=== PATIENT | female | born 1935 | race Hispanic/Latino ===

== ENCOUNTER 2017-09-05 17:37 | Inpatient (IN) | payer MEDICARE ==
[2017-09-05 20:33] VITALS: BMI 24.5
--- NOTE | 2017-09-05 22:00 | CP.PCM.HP ---
History of Present Illness - History of Present Illness History of Present Illness: Chief Complaint: infected wound right hip: The Patient was seen and examined in the Rehab unit HPI: The hx was obtained from the family and the medical records. The patient was sent from the [facility] for Physical therapy and continued treatment. She is an 81 years old female with hx of dementia, HTN, Osteoarthritis Right hip Open Reduction Internal Fixation done on 07/10/17. She was re admitted on 07/29/17 for wound infection at the right surgical wound. PICC line placed and started on Vancomycin to which she later developed a skin rash. She was again sent from [facility] ([facility] to the ED on 09/07/17 because of Mental frarusto the ED because she Wound culture grew MRSA and E Coli, Vancomycin was discontinued and patient started on Cubicin on 09/02/17 to complete 16 days. PMH: Dementia; HTN; osteoarthritis; HLD; Anxiety, PSH: Right hip ORIF 07/10/2017 SH: No illegal drug use; No alcohol; No smoking; Lives in Assisted lining FH: No Known Family Hs Allergies: Vancomycin; Cefepime Medication: Reviewed pmd Present on Admission - Present on Admission Any Indicators Present on Admission: No History of DVT/PE: No History of Uncontrolled Diabetes: No Urinary Catheter: No Decubitus Ulcer Present: No Review of Systems - Review of Systems Systems not reviewed;Unavailable: Dementia Review of Systems: Review of systems is limited because the patient has dementia. Past Patient History - Past Medical History & Family History Past Medical History?: Yes - Past Social History Smoking Status: Never Smoked Chewing Tobacco Use: No Cigar Use: No Alcohol: None Drugs: Denies - CARDIAC Hx Hypercholesterolemia: Yes Hx Hypertension: Yes - PULMONARY Hx Respiratory Disorders: No - NEUROLOGICAL Hx Dementia: Yes - HEENT Hx HEENT Problems: No - RENAL Hx Chronic Kidney Disease: No - ENDOCRINE/METABOLIC Hx Endocrine Disorders: No - HEMATOLOGICAL/ONCOLOGICAL Hx Blood Disorders: No - INTEGUMENTARY Hx Dermatological Problems: No - MUSCULOSKELETAL/RHEUMATOLOGICAL Hx Musculoskeletal Disorders: Yes Hx Osteoarthritis: Yes - GASTROINTESTINAL Hx Gastrointestinal Disorders: No - GENITOURINARY/GYNECOLOGICAL Hx Genitourinary Disorders: No - PSYCHIATRIC Hx Psychophysiologic Disorder: No - SURGICAL HISTORY Hx Surgeries: Yes Hx Orthopedic Surgery: Yes (Right hip ORIF) - ANESTHESIA Hx Anesthesia: Yes Hx Anesthesia Reactions: No Meds Allergies/Adverse Reactions: Allergies Allergy/AdvReac Type Severity Reaction Status Date / Time vancomycin Allergy Severe RASH Verified 09/05/17 20:32 cefepime Allergy RASH Verified 09/06/17 01:00 Sulfa (Sulfonamide Allergy RASH Verified 09/06/17 01:00 Antibiotics) Physical Exam - Constitutional Appears: No Acute Distress - Head Exam Head Exam: ATRAUMATIC, NORMAL INSPECTION, NORMOCEPHALIC - Eye Exam Eye Exam: EOMI, Normal appearance Pupil Exam: NORMAL ACCOMODATION, PERRL - ENT Exam ENT Exam: Mucous Membranes Moist, Normal Exam, Normal External Ear Exam - Neck Exam Neck exam: Positive for: Full Rom, Normal Inspection. Negative for: Lymphadenopathy, Tenderness - Respiratory Exam Respiratory Exam: Clear to Auscultation Bilateral. absent: Rales, Rhonchi, Wheezes - Cardiovascular Exam Cardiovascular Exam: REGULAR RHYTHM, RRR, +S1, +S2 - GI/Abdominal Exam GI & Abdominal Exam: Normal Bowel Sounds, Soft. absent: Mass, Organomegaly, Tenderness - Rectal Exam Rectal Exam: Deferred - Extremities Exam Extremities exam: Negative for: pedal edema Additional comments: Right hip lateral aspect with healed surgical wound . No sign of Inflammation - Back Exam Back exam: NORMAL INSPECTION. absent: CVA tenderness (L), CVA tenderness (R) - Neurological Exam Neurological exam: CN II-XII Intact, Oriented x3, Reflexes Normal Additional comments: Confused - Psychiatric Exam Psychiatric exam: Normal Affect, Normal Mood - Skin Skin Exam: Dry, Intact, Normal Color, Warm Assessment & Plan - Assessment and Plan (Free Text) Assessment: #. MRSA infected wound Right Hip #. HTN #. Dementia #. Anxiety #. Deconditioning Plan: 81 years old female with hx of dementia, HTN, Osteoarthritis Right hip Open Reduction Internal Fixation done on 07/10/17. She was re admitted on 07/29/17 for wound infection at the right surgical wound. PICC line placed and started on Vancomycin to which she later developed a skin rash. She was again sent from [facility] ([facility] to the ED on 09/07/17 because of Mental Status Change. Her Wound culture grew MRSA and E Coli, Vancomycin was discontinued and patient started on Cubicin on 09/02/17 to complete 16 days. #. MRSA infected wound Right Hip - Consult ID Dr Gray - Continue Cubacin to 09/18/17 or as per ID - Continue Levofloxacin #. HTN - Valsartan - Follow blood pressures #. Dementia - Psychiologist on board #. Anxiety - Consult Dr Arevalo Psychologist - Lexapr #. Deconditioning - Consult Dr Coyle Physiatry - PT/OT #. Code Status: Full - Date & Time Date: 09/05/17 Time: 22:00
[2017-09-05] MEDS ORDERED: CODEINE SULFATE PO PRN (22:04)
[2017-09-05] MEDS ORDERED: Patient's Own Med (Methylprednisolone [Medrol Dose Pack (21 Tabs)] 4 MG) PO SCH ×2 (22:15→23:30)
[2017-09-05] MEDS ORDERED: Patient's Own Med (Methylprednisolone [Medrol Dose Pack (21 Tabs)] 4 MG) PO ONE (23:30)
[2017-09-06 06:43] LABS: BASO % 0.3 % (0.0-2.0); EOS # 0.1 K/uL (0.0-0.7); EOS % 1.7 % (0.0-4.0); HEMOGLOBIN 12.4 g/dL (12.0-16.0); LYMPH # 1.5 K/uL (1.0-4.3); LYMPH % 17.8 % (20.0-40.0); MEAN CELL VOLUME 88.7 fl (81.0-99.0); MEAN CORPUSCULAR HEMOGLOBIN 29.5 pg (27.0-31.0); MEAN CORPUSCULAR HGB CONC 33.2 g/dL (33.0-37.0); MEAN PLATELET VOLUME 8.5 fl (7.2-11.7); MONO # 0.6 K/uL (0.0-0.8); MONO % 7.5 % (0.0-10.0); NEUT % 72.7 % (50.0-75.0); NRBC % 0.1 % (0.0-0.0); RBC 4.22 Mil/uL (3.80-5.20); RED CELL DISTRIBUTION WIDTH 15.4 % (11.5-14.5); WHITE BLOOD COUNT 8.3 K/uL (4.8-10.8)
[2017-09-06 06:48] LABS: INR 1.1 (0.9-1.2); PARTIAL THROMBOPLASTIN TIME 26.1 Seconds (25.6-37.1); PROTHROMBIN TIME 12.4 Seconds (9.8-13.1)
[2017-09-06 06:53] LABS: ALB/GLOB RATIO 1.1 (1.0-2.1); ALBUMIN 2.9 g/dL (3.5-5.0); ALT/SGPT 40 U/L (9-52); AST/SGOT 19 U/L (14-36); BLOOD UREA NITROGEN 24 mg/dl (7-17); CALCIUM 8.4 mg/dL (8.4-10.2)
[2017-09-06] MEDS: Patient's Own Med (Methylprednisolone [Medrol Dose Pack (21 Tabs)] 4 MG) PO SCH ×3 (06:57→22:19)
[2017-09-06 07:07] LABS: GFR AFRICAN-AMERICAN > 60; GFR NON-AFRICAN AMERICAN > 60
[2017-09-06] MEDS ORDERED: HEPARIN SODIUM IV SCH (09:00)
[2017-09-06] MEDS ORDERED: Patient's Own Med (Ferrous Sulfate [Feosol] 324 MG) PO SCH (09:00)
[2017-09-06] MEDS ORDERED: Patient's Own Med (Multivitamins [Hexavitamin] 1 TAB) PO SCH (09:00)
[2017-09-06] MEDS: Enoxaparin 40 mg Syringe SC SCH (09:15)
[2017-09-06] MEDS: Multivitamin With Minerals Tab PO SCH (09:25)
[2017-09-06] MEDS: levoFLOXacin 500 MG TAB PO SCH (09:25)
[2017-09-06] MEDS: Lactobacillus Acidophilus 500 MU Cap PO SCH ×2 (09:29→22:16)
--- NOTE | 2017-09-06 13:17 | PSY.TMCNF ---
Nursing - Vital Signs Vital Signs (Last 8 hours): Vital Signs 09/06/17 09/06/17 08:45 09:00 Temperature 97.6 F 97.6 F Pulse Rate 78 78 Respiratory 18 18 Rate Blood Pressure 120/80 120/80 O2 Sat by Pulse 96 Oximetry Pain: 0 - Medications/Other Issues Comment: Refuses to take some medications despite encouragement and explanation. 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 I/L healed. - Consults Comment: Dr. Gray, Dr. Coyle - Toileting Toileting: Dependent - Bladder Management Bladder Pattern: Normal Voiding Method: Diaper Bladder Management: Dependent Frequency of Accidents: >5 - Bowel Management Bowel Pattern: Incontinent Bowel Management: Dependent Frequency of Accidents: >5 - Transfers Transfers: Minimal Assistance - ADL's ADL's: Moderate Assistance - Pain Management Comments: On Tylenol , Codeine PRN - Patient/Family Teaching Comments: Safety Precautions - Goals/Time Frame Comments: FWB to RLE - Provider Provider: Pia GUTIÉRREZN RN CRRN Physical Therapy - Provider Therapist: Celsa License Number: [id number] Nutrition - Current Diet Current Diet/ Supplement/ Feedings: Regular thin liquids - Appetite Percent Meal Consumed: 50-74% - Comments Comments: Safety Precautions - Assessment/Goals/Time Frame Assessment/Goals/Time Frame: Refuses to take some medications despite encouragement and explanation. 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 I/L healed. - Provider Provider: Etta Ratliff RD Rehabilitation Plan - Treatment Plan Treatment Plan: Physical Therapy, Occupational Therapy, Dietary, Pain Management , Wound Care, Patient/Family Education - Discharge Plan Discharge to: Subacute ([facility] to LTC), [facility]
--- NOTE | 2017-09-06 13:19 | PCM.OPOC ---
Physiatry Overall Plan of Care - Overall Plan of Care Estimated Length of Stay in Weeks: 3 Rehab Impairment: Mobility, Gait, Cognition, Balance, Coordination Etiologic Diagnosis: Hip/Knee Surgery Rehab/Medical Prognosis: Guarded - Anticipated Interventions Physical Therapy:: Yes Occupational Therapy:: Yes Speech Therapy:: No Recreational Therapy:: Yes - Therapy Goals Bed Mobility: Contact Guard Ambulation: Contact Guard Functional Positional Changes:: Contact Guard - Discharge Plan Discharge Destination: Subacute
--- NOTE | 2017-09-06 14:08 | CP.PCM.CON ---
History of Present Illness - History of Present Illness History of Present Illness: Dr Coyle PMR consultation on Roxy Marrero, born 1935 who has been admitted to [facility] for acute inpatient rehabilitation. She had undergone an ORIF of the righ hip which developed an infection. She has been started on IV ABX and is here now for therapies to help increase functional independence. She has been at an assisted living facility. + Dementia Review of Systems - Review of Systems Systems not reviewed;Unavailable: Altered Mental Status Past Patient History - Past Medical History & Family History Past Medical History?: Yes - Past Social History Smoking Status: Never Smoked Chewing Tobacco Use: No Cigar Use: No Alcohol: None Drugs: Denies - CARDIAC Hx Hypercholesterolemia: Yes Hx Hypertension: Yes - PULMONARY Hx Respiratory Disorders: No - NEUROLOGICAL Hx Dementia: Yes - HEENT Hx HEENT Problems: No - RENAL Hx Chronic Kidney Disease: No - ENDOCRINE/METABOLIC Hx Endocrine Disorders: No - HEMATOLOGICAL/ONCOLOGICAL Hx Blood Disorders: No - INTEGUMENTARY Hx Dermatological Problems: No - MUSCULOSKELETAL/RHEUMATOLOGICAL Hx Musculoskeletal Disorders: Yes Hx Osteoarthritis: Yes - GASTROINTESTINAL Hx Gastrointestinal Disorders: No - GENITOURINARY/GYNECOLOGICAL Hx Genitourinary Disorders: No - PSYCHIATRIC Hx Psychophysiologic Disorder: No - SURGICAL HISTORY Hx Surgeries: Yes Hx Orthopedic Surgery: Yes (Right hip ORIF) - ANESTHESIA Hx Anesthesia: Yes Hx Anesthesia Reactions: No Meds Allergies/Adverse Reactions: Allergies Allergy/AdvReac Type Severity Reaction Status Date / Time vancomycin Allergy Severe RASH Verified 09/05/17 20:32 cefepime Allergy RASH Verified 09/06/17 01:00 Sulfa (Sulfonamide Allergy RASH Verified 09/06/17 01:00 Antibiotics) - Medications Medications: Current Medications Acetaminophen (Tylenol 325mg Tab) 325 mg PO Q6 PRN PRN Reason: Pain, moderate (4-7) Codeine Sulfate (Codeine) 30 mg PO Q6 PRN PRN Reason: Pain, severe (8-10) Daptomycin (Cubicin) 500 mg IV HS [facility] PRN Reason: Protocol Stop: 09/11/17 22:01 Docusate Sodium (Colace) 100 mg PO DAILY PRN PRN Reason: Constipation Enoxaparin Sodium (Lovenox) 40 mg SC DAILY [facility] PRN Reason: Protocol Escitalopram Oxalate (Lexapro) 20 mg PO DAILY [facility] Last Admin: 09/06/17 09:26 Dose: 20 mg Famotidine (Pepcid) 20 mg PO Q12 [facility] Last Admin: 09/06/17 09:26 Dose: 20 mg Ferrous Sulfate (Feosol) 325 mg PO BID [facility] Last Admin: 09/06/17 09:26 Dose: 325 mg Heparin Sodium (Porcine) (Heparin Lock Flush) 300 units IVF HS [facility] Home Med (Methylprednisolone [Medrol Dose Pack (21 Tabs)]) 4 mg PO TID@0730, 1300,2200 [facility] Stop: 09/06/17 23:00 Last Admin: 09/06/17 12:23 Dose: 4 mg Home Med (Methylprednisolone [Medrol Dose Pack (21 Tabs)]) 4 mg PO BID@0730, 2200 [facility] Stop: 09/07/17 23:00 Home Med (Methylprednisolone [Medrol Dose Pack (21 Tabs)]) 4 mg PO ACB ONE Stop: 09/08/17 07:31 Lactobacillus Acidophilus (Bacid Acidophilus) 1 cap PO Q12 [facility] Last Admin: 09/06/17 09:29 Dose: 1 cap Levofloxacin (Levaquin) 500 mg PO DAILY [facility] PRN Reason: Protocol Last Admin: 09/06/17 09:25 Dose: 500 mg Loratadine (Claritin) 10 mg PO DAILY [facility] Last Admin: 09/06/17 09:26 Dose: 10 mg Multivitamins/Minerals (Therapeutic-M Tab) 1 tab PO DAILY [facility] Last Admin: 09/06/17 09:25 Dose: 1 tab Nystatin (Nystop Topical Powder) 1 applic TOP Q12 [facility] Last Admin: 09/06/17 09:26 Dose: 1 applic Thiamine HCl (Vitamin B1 Tab) 100 mg PO DAILY [facility] Last Admin: 09/06/17 09:26 Dose: 100 mg Valsartan (Diovan) 160 mg PO Q12 [facility] Last Admin: 09/06/17 09:25 Dose: 160 mg Physical Exam - Constitutional Appears: Well, Non-toxic - Head Exam Head Exam: ATRAUMATIC, NORMAL INSPECTION, NORMOCEPHALIC - Eye Exam Eye Exam: EOMI - ENT Exam ENT Exam: Mucous Membranes Moist - Respiratory Exam Respiratory Exam: NORMAL BREATHING PATTERN - Cardiovascular Exam Cardiovascular Exam: REGULAR RHYTHM - GI/Abdominal Exam GI & Abdominal Exam: absent: Distended - Extremities Exam Extremities exam: Negative for: calf tenderness - Neurological Exam Neurological exam: Alert (but not aware of age or place) - Skin Skin Exam: Warm Results - Vital Signs Recent Vital Signs: Last Vital Signs Temp 97.6 F 09/06/17 09:00 Pulse 78 09/06/17 09:00 Resp 18 09/06/17 09:00 BP 120/80 09/06/17 09:00 Pulse Ox 96 09/06/17 08:45 - Labs Result Diagrams: 09/06/17 06:05 09/06/17 06:05 Labs: Laboratory Results - last 24 hr 09/06/17 09/06/17 09/06/17 06:05 06:05 06:05 WBC 8.3 RBC 4.22 Hgb 12.4 Hct 37.5 MCV 88.7 MCH 29.5 MCHC 33.2 RDW 15.4 H Plt Count 235 MPV 8.5 Neut % (Auto) 72.7 Lymph % (Auto) 17.8 L [place] % (Auto) 7.5 Eos % (Auto) 1.7 Baso % (Auto) 0.3 Neut # (Auto) 6.0 Lymph # (Auto) 1.5 [place] # (Auto) 0.6 Eos # (Auto) 0.1 Baso # (Auto) 0.0 PT 12.4 INR 1.1 APTT 26.1 Sodium 139 Potassium 3.6 Chloride 103 Carbon Dioxide 24 Anion Gap 16 BUN 24 H Creatinine 0.8 Est GFR ( Amer) > 60 Est GFR (Non-Af Amer) > 60 Random Glucose 104 Calcium 8.4 Total Bilirubin 0.5 AST 19 ALT 40 Alkaline Phosphatase 54 Total Protein 5.6 L Albumin 2.9 L Globulin 2.7 Albumin/Globulin Ratio 1.1 Assessment & Plan - Assessment and Plan (Free Text) Plan: PT/OT to continue to help increase functional independence Team conference for d/c planning Pain: controlled Vascular: no evidence of DVT GI: No evidence of constipation or diarrhea Patient is a fair acute rehabilitation candidate and will have focused pain management, PT, OT and recreational therapy to help facilitate a safe and appropriate d/c plan cognitive status is going to impede progress. Will need [facility] prior to d/c to LTC impairment code: 08.11
[2017-09-06] MEDS ORDERED: DAPTOmycin 500 MG in Sodium Chloride 0.9% 100 ML IV SCH (22:00)
[2017-09-06] MEDS ORDERED: DAPTOmycin 500 mg Inj (Cubicin) IV SCH (22:00)
[2017-09-07] MEDS: Patient's Own Med (Methylprednisolone [Medrol Dose Pack (21 Tabs)] 4 MG) PO SCH ×2 (07:59→22:41)
[2017-09-07] MEDS: Lactobacillus Acidophilus 500 MU Cap PO SCH ×2 (09:05→20:50)
[2017-09-07] MEDS: Multivitamin With Minerals Tab PO SCH (09:06)
[2017-09-07] MEDS: levoFLOXacin 500 MG TAB PO SCH (09:07)
[2017-09-07] MEDS: Enoxaparin 40 mg Syringe SC SCH (09:07)
--- NOTE | 2017-09-07 10:46 | CP.PCM.PN ---
Subjective - Date & Time of Evaluation Date of Evaluation: 09/07/17 Time of Evaluation: 10:20 - Subjective Subjective: I D NOTE WOULD CONTINUE IV DAPTOMYCIN WILL REVIEW PAPER CHART FULL COSULT TO FOLLOW Objective - Vital Signs/Intake and Output Vital Signs (last 24 hours): Temp Pulse Resp BP Pulse Ox 98.0 F 67 20 160/63 H 97 09/07/17 08:14 09/07/17 08:14 09/07/17 08:14 09/07/17 08:14 09/07/17 08:14 - Medications Medications: Current Medications Acetaminophen (Tylenol 325mg Tab) 325 mg PO Q6 PRN PRN Reason: Pain, moderate (4-7) Codeine Sulfate (Codeine) 30 mg PO Q6 PRN PRN Reason: Pain, severe (8-10) Docusate Sodium (Colace) 100 mg PO DAILY PRN PRN Reason: Constipation Enoxaparin Sodium (Lovenox) 40 mg SC DAILY [facility] PRN Reason: Protocol Last Admin: 09/07/17 09:07 Dose: 40 mg Escitalopram Oxalate (Lexapro) 20 mg PO DAILY [facility] Last Admin: 09/07/17 09:07 Dose: 20 mg Famotidine (Pepcid) 20 mg PO Q12 [facility] Last Admin: 09/07/17 09:07 Dose: 20 mg Ferrous Sulfate (Feosol) 325 mg PO BID [facility] Last Admin: 09/07/17 09:07 Dose: 325 mg Heparin Sodium (Porcine) (Heparin Lock Flush) 300 units IVF [facility] Last Admin: 09/06/17 22:17 Dose: 300 units Home Med (Methylprednisolone [Medrol Dose Pack (21 Tabs)]) 4 mg PO BID@0730, 2200 [facility] Stop: 09/07/17 23:00 Last Admin: 09/07/17 07:59 Dose: 4 mg Home Med (Methylprednisolone [Medrol Dose Pack (21 Tabs)]) 4 mg PO ACB ONE Stop: 09/08/17 07:31 Daptomycin 500 mg/ Sodium (Chloride) 100 mls @ 100 mls/hr IV HS [facility] Stop: 09/11/17 22:01 Last Admin: 09/06/17 22:38 Dose: 100 mls/hr Lactobacillus Acidophilus (Bacid Acidophilus) 1 cap PO Q12 [facility] Last Admin: 09/07/17 09:05 Dose: 1 cap Levofloxacin (Levaquin) 500 mg PO DAILY [facility] PRN Reason: Protocol Last Admin: 09/07/17 09:07 Dose: 500 mg Loratadine (Claritin) 10 mg PO DAILY [facility] Last Admin: 09/07/17 09:08 Dose: 10 mg Multivitamins/Minerals (Therapeutic-M Tab) 1 tab PO DAILY [facility] Last Admin: 09/07/17 09:06 Dose: 1 tab Nystatin (Nystop Topical Powder) 1 applic TOP Q12 [facility] Last Admin: 09/07/17 09:08 Dose: 1 applic Thiamine HCl (Vitamin B1 Tab) 100 mg PO DAILY [facility] Last Admin: 09/07/17 09:06 Dose: 100 mg Valsartan (Diovan) 160 mg PO Q12 [facility] Last Admin: 09/07/17 09:07 Dose: 160 mg - Labs Labs: 09/06/17 06:05 09/06/17 06:05 PT 12.4 Seconds (9.8-13.1) 09/06/17 06:05 INR 1.1 (0.9-1.2) 09/06/17 06:05 APTT 26.1 Seconds (25.6-37.1) 09/06/17 06:05
--- NOTE | 2017-09-07 14:19 | CP.PCM.PN ---
Subjective - Date & Time of Evaluation Date of Evaluation: 09/07/17 Time of Evaluation: 12:30 - Subjective Subjective: Patient seen and examined. Confused. No complaint. Objective - Vital Signs/Intake and Output Vital Signs (last 24 hours): Temp Pulse Resp BP Pulse Ox 98.0 F 88 20 160/63 H 99 09/07/17 08:14 09/07/17 08:58 09/07/17 08:14 09/07/17 08:14 09/07/17 08:58 - Medications Medications: Current Medications Acetaminophen (Tylenol 325mg Tab) 325 mg PO Q6 PRN PRN Reason: Pain, moderate (4-7) Codeine Sulfate (Codeine) 30 mg PO Q6 PRN PRN Reason: Pain, severe (8-10) Docusate Sodium (Colace) 100 mg PO DAILY PRN PRN Reason: Constipation Enoxaparin Sodium (Lovenox) 40 mg SC DAILY [facility] PRN Reason: Protocol Last Admin: 09/07/17 09:07 Dose: 40 mg Escitalopram Oxalate (Lexapro) 20 mg PO DAILY [facility] Last Admin: 09/07/17 09:07 Dose: 20 mg Famotidine (Pepcid) 20 mg PO Q12 [facility] Last Admin: 09/07/17 09:07 Dose: 20 mg Ferrous Sulfate (Feosol) 325 mg PO BID [facility] Last Admin: 09/07/17 09:07 Dose: 325 mg Heparin Sodium (Porcine) (Heparin Lock Flush) 300 units IVF [facility] Last Admin: 09/06/17 22:17 Dose: 300 units Home Med (Methylprednisolone [Medrol Dose Pack (21 Tabs)]) 4 mg PO BID@0730, 2200 [facility] Stop: 09/07/17 23:00 Last Admin: 09/07/17 07:59 Dose: 4 mg Home Med (Methylprednisolone [Medrol Dose Pack (21 Tabs)]) 4 mg PO ACB ONE Stop: 09/08/17 07:31 Daptomycin 500 mg/ Sodium (Chloride) 100 mls @ 100 mls/hr IV HS [facility] Stop: 09/11/17 22:01 Last Admin: 09/06/17 22:38 Dose: 100 mls/hr Lactobacillus Acidophilus (Bacid Acidophilus) 1 cap PO Q12 [facility] Last Admin: 09/07/17 09:05 Dose: 1 cap Levofloxacin (Levaquin) 500 mg PO DAILY [facility] PRN Reason: Protocol Last Admin: 09/07/17 09:07 Dose: 500 mg Loratadine (Claritin) 10 mg PO DAILY [facility] Last Admin: 09/07/17 09:08 Dose: 10 mg Multivitamins/Minerals (Therapeutic-M Tab) 1 tab PO DAILY [facility] Last Admin: 09/07/17 09:06 Dose: 1 tab Nystatin (Nystop Topical Powder) 1 applic TOP Q12 [facility] Last Admin: 09/07/17 09:08 Dose: 1 applic Thiamine HCl (Vitamin B1 Tab) 100 mg PO DAILY [facility] Last Admin: 09/07/17 09:06 Dose: 100 mg Valsartan (Diovan) 160 mg PO Q12 [facility] Last Admin: 09/07/17 09:07 Dose: 160 mg - Labs Labs: 09/06/17 06:05 09/06/17 06:05 PT 12.4 Seconds (9.8-13.1) 09/06/17 06:05 INR 1.1 (0.9-1.2) 09/06/17 06:05 APTT 26.1 Seconds (25.6-37.1) 09/06/17 06:05 - Constitutional Appears: No Acute Distress - Head Exam Head Exam: ATRAUMATIC - Eye Exam Eye Exam: absent: Scleral icterus - ENT Exam ENT Exam: Mucous Membranes Moist - Neck Exam Neck Exam: absent: Meningismus - Respiratory Exam Respiratory Exam: absent: Rales, Rhonchi, Wheezes, Respiratory Distress - Cardiovascular Exam Cardiovascular Exam: REGULAR RHYTHM, +S1, +S2 - GI/Abdominal Exam GI & Abdominal Exam: Soft. absent: Tenderness - Rectal Exam Rectal Exam: Deferred - Extremities Exam Extremities Exam: absent: Pedal Edema - Neurological Exam Neurological Exam: Alert, Awake - Psychiatric Exam Psychiatric exam: Normal Affect - Skin Skin Exam: Dry, Intact Assessment and Plan - Assessment and Plan (Free Text) Assessment: 81 yo female with history of Dementia, HTN and OA had undergone ORIF of the right hip fracture on 07/10/17. Surgical got infected and grew MRSA and E Coli. She was put initially on Vanco but developed allergic reaction to it. Vanco was DC and switched to Cubicin. Plan was to continue Cubicin for 16 days 1. MRSA infected right Hip Wound ID consult with Dr Manocchio Continue Cubacin to 09/18/17 as per ID No indication for Levaquin?? 2. HTN BP stable continue Valsartan 160mg PO BID monitor BP 3. Dementia psychology consult 4. DVT prophylaxis Lovenox 40mg SC daily
--- NOTE | 2017-09-07 17:32 | CP.PCM.PN ---
Subjective - Date & Time of Evaluation Date of Evaluation: 09/07/17 Time of Evaluation: 17:22 - Subjective Subjective: I D NOTE PATIENT EXAMINED ,CHHART REVIEWED FULL CONSULT DICTATED PATIENT IS QUITE CONFUSED HISTORY OBTAINED FROM CHART CONTINUE IV DAPTOMYCIN FOR AT LEAST ANOTHER 14 DAYS (FOR MRSA) CONTINUE LEVAQUIN :FOR E.COLI FROM INITIAL CULTURES Objective - Vital Signs/Intake and Output Vital Signs (last 24 hours): Temp Pulse Resp BP Pulse Ox 98.0 F 88 20 160/63 H 99 09/07/17 08:14 09/07/17 08:58 09/07/17 08:14 09/07/17 08:14 09/07/17 08:58 - Medications Medications: Current Medications Acetaminophen (Tylenol 325mg Tab) 325 mg PO Q6 PRN PRN Reason: Pain, moderate (4-7) Codeine Sulfate (Codeine) 30 mg PO Q6 PRN PRN Reason: Pain, severe (8-10) Docusate Sodium (Colace) 100 mg PO DAILY PRN PRN Reason: Constipation Enoxaparin Sodium (Lovenox) 40 mg SC DAILY [facility] PRN Reason: Protocol Last Admin: 09/07/17 09:07 Dose: 40 mg Escitalopram Oxalate (Lexapro) 20 mg PO DAILY [facility] Last Admin: 09/07/17 09:07 Dose: 20 mg Famotidine (Pepcid) 20 mg PO Q12 [facility] Last Admin: 09/07/17 09:07 Dose: 20 mg Ferrous Sulfate (Feosol) 325 mg PO BID [facility] Last Admin: 09/07/17 17:01 Dose: Not Given Heparin Sodium (Porcine) (Heparin Lock Flush) 300 units IVF HS [facility] Last Admin: 09/06/17 22:17 Dose: 300 units Home Med (Methylprednisolone [Medrol Dose Pack (21 Tabs)]) 4 mg PO BID@0730, 2200 [facility] Stop: 09/07/17 23:00 Last Admin: 09/07/17 07:59 Dose: 4 mg Home Med (Methylprednisolone [Medrol Dose Pack (21 Tabs)]) 4 mg PO ACB ONE Stop: 09/08/17 07:31 Daptomycin 500 mg/ Sodium (Chloride) 100 mls @ 100 mls/hr IV Q24H [facility] PRN Reason: Protocol Stop: 09/20/17 22:59 Levofloxacin/Dextrose (Levaquin 500mg) 500 mg in 100 mls @ 100 mls/hr IVPB DAILY [facility] PRN Reason: Protocol Stop: 09/22/17 09:01 Lactobacillus Acidophilus (Bacid Acidophilus) 1 cap PO Q12 [facility] Last Admin: 09/07/17 09:05 Dose: 1 cap Loratadine (Claritin) 10 mg PO DAILY [facility] Last Admin: 09/07/17 09:08 Dose: 10 mg Multivitamins/Minerals (Therapeutic-M Tab) 1 tab PO DAILY [facility] Last Admin: 09/07/17 09:06 Dose: 1 tab Nystatin (Nystop Topical Powder) 1 applic TOP Q12 [facility] Last Admin: 09/07/17 09:08 Dose: 1 applic Thiamine HCl (Vitamin B1 Tab) 100 mg PO DAILY [facility] Last Admin: 09/07/17 09:06 Dose: 100 mg Valsartan (Diovan) 160 mg PO Q12 [facility] Last Admin: 09/07/17 09:07 Dose: 160 mg - Labs Labs: 09/06/17 06:05 09/06/17 06:05 PT 12.4 Seconds (9.8-13.1) 09/06/17 06:05 INR 1.1 (0.9-1.2) 09/06/17 06:05 APTT 26.1 Seconds (25.6-37.1) 09/06/17 06:05
[2017-09-07] MEDS: DAPTOmycin 500 MG in Sodium Chloride 0.9% 100 ML IV SCH (22:42)
[2017-09-08] MEDS ORDERED: Patient's Own Med (Methylprednisolone [Medrol Dose Pack (21 Tabs)] 4 MG) PO ONE (07:30)
--- NOTE | 2017-09-08 08:38 | CON ---
DATE: HISTORY OF PRESENT ILLNESS: The patient is in the acute rehab floor at [facility]. The patient has dementia and had been transferred from halfway unit. The history was totally obtained from the medical records of the previous hospital and halfway. Her family was not in the room and the patient was confused when I examined her. The patient was sent from [facility] for physiotherapy and for treatment. She is an 81-year-old female with a history of dementia, HTN, and osteoarthritis of right hip. The patient apparently had an open reduction with internal fixation of the right hip done on 07/10/2017, She was brought back to the [facility] for wound infection, and PICC line and was started on IV vancomycin. At the time, her cultures grew MRSA and E. coli. She had been started on treatment with vancomycin and Maxipime, on 07/29/2017 when the cultures were noted to have MRSA and E. coli. She has developed skin rashes and it is unclear as to whether she is allergic to VANCOMYCIN AND MAXIPIME and Zovirax, which is a fact I took from the ID note and thus I am unsure what her allergies are. She has also been on Solu-Medrol also She was started on daptomycin on 09/02/2017 to continue the intravenous therapy. She had osteomyelitis of the wound and she has hardware in the hip,thus it is necessary to treat her from at least 4 to 6 weeks with IV antibiotics. At present time, I think we are down to the point t that she needs treated for at least 2 more weeks, we will see what happens clinically Right now, I placed her on daptomycin 500 mg IV piggyback and also started po Levaquin, which the ID MD at [facility] started to complete the treatment for E. coli treatments which I agree with. PAST MEDICAL HISTORY: Includes dementia, hypertension, osteoarthritis and anxiety, and had right ORIF done on 07/10/2017. ALLERGIES: AT THIS POINT I STATED UNSURE, BUT WE WILL FEEL THAT WE WILL NOT TREAT WITH VANCOMYCIN OR CEPHALOSPORIN AT THIS TIME. PHYSICAL EXAMINATION: HEENT: Within normal limits. NECK: Supple. LUNGS: Clear. HEART: Regular sinus rhythm. ABDOMEN: Soft. Positive bowel sounds. EXTREMITIES: No CCE and right hip wound suture line is intact and no evidence of any drainage or erythema. LABORATORY DATA: White count is 8.3, polys 72%, and hemoglobin is 12.4. Chemistries; her creatinine is 0.8. GFR is greater than 60, total creatinine kinase is 21, which is something we have to follow being that she is on daptomycin. Cultures are stated not MRSA and E. coli and I do not have the sensitivities at this point. IMPRESSION AND PLAN: Osteomyelitis and wound infection in patient who had a right open reduction and internal fixation of hip and she should be treated at least total of 6 weeks with IV antibiotics. At present, she has 4 weeks with vancomycin and Maxipime. We will continue daptomycin 500 mg IV piggyback every 24 hours following the creatinine and creatinine kinase and placed on Levaquin 500 mg p.o. every 24 hours. Fransico Gray MD MTDD
[2017-09-08] MEDS: Multivitamin With Minerals Tab PO SCH (08:54)
[2017-09-08] MEDS: Enoxaparin 40 mg Syringe SC SCH (08:54)
[2017-09-08] MEDS: Lactobacillus Acidophilus 500 MU Cap PO SCH ×2 (08:59→21:29)
[2017-09-08] MEDS ORDERED: levoFLOXacin 500 mg in D5W 500 MG/100 ML BAG IVPB SCH (09:00)
[2017-09-08] MEDS: DAPTOmycin 500 MG in Sodium Chloride 0.9% 100 ML IV SCH (21:56)
[2017-09-09 06:10] LABS: HEMOGLOBIN 12.1 g/dL (12.0-16.0); MEAN CELL VOLUME 88.9 fl (81.0-99.0); MEAN CORPUSCULAR HEMOGLOBIN 29.5 pg (27.0-31.0); MEAN CORPUSCULAR HGB CONC 33.1 g/dL (33.0-37.0); RBC 4.11 Mil/uL (3.80-5.20); RED CELL DISTRIBUTION WIDTH 16.3 % (11.5-14.5); WHITE BLOOD COUNT 8.4 K/uL (4.8-10.8)
[2017-09-09 06:38] LABS: BLOOD UREA NITROGEN 23 mg/dl (7-17); GFR AFRICAN-AMERICAN > 60; GFR NON-AFRICAN AMERICAN 60
--- NOTE | 2017-09-09 07:58 | CP.PCM.CON ---
History of Present Illness - History of Present Illness History of Present Illness: Pt is a 81 year old female admitted to the rehab unit of [facility] and referred to the job specification writer for evaluation. med history positive for Dementia, HTN, right hip, osteoarthritis, anxiety, and osteomyleitis. medications: See medical record. Note, pt was unable to provide a medical history and reason for admission. Significant memory deficits were evident on evaluation consistent with her diagnosis of Dementia. Social History: pt reported living at the hospital. She was reminded of living elsewhere. She spoke of being . Pt was unable to specify years and who else may be in the home. She spoke of having 4 children. Pt would not provide names. Pt was unable to recall number of grandchildren. Ed/Voc: pt was unable to specify where she was raised. dhe reported graduating HS. Was unable to specify if she attended college. She reported "maybe" seeing a psychiatrist in the past. Alc/drug use were denied. Pt denied memory issues prior to admission (insight/ judgement poor) MSE: Pt alert, able to state her name, not year, not month, not day/date. Pt unable to describe current circumstances, affect constricted, mood irritable, no psychosis, no si no hi ideation. Dx: Dementia ADjustment dx/mood dx with change of environment Pt is not a candidate for supportive services. Recommendation: Psychiatric consultation if behavior or mood deteriorates Thank you for this referral Past Patient History - Past Medical History & Family History Past Medical History?: Yes - Past Social History Smoking Status: Never Smoked Chewing Tobacco Use: No Cigar Use: No Alcohol: None Drugs: Denies - CARDIAC Hx Hypercholesterolemia: Yes Hx Hypertension: Yes - PULMONARY Hx Respiratory Disorders: No - NEUROLOGICAL Hx Dementia: Yes - HEENT Hx HEENT Problems: No - RENAL Hx Chronic Kidney Disease: No - ENDOCRINE/METABOLIC Hx Endocrine Disorders: No - HEMATOLOGICAL/ONCOLOGICAL Hx Blood Disorders: No - INTEGUMENTARY Hx Dermatological Problems: No - MUSCULOSKELETAL/RHEUMATOLOGICAL Hx Arthritis: Yes - GASTROINTESTINAL Hx Gastrointestinal Disorders: No - GENITOURINARY/GYNECOLOGICAL Hx Genitourinary Disorders: No - PSYCHIATRIC Hx Psychophysiologic Disorder: No - SURGICAL HISTORY Hx Surgeries: Yes Hx Orthopedic Surgery: Yes (Right hip ORIF) - ANESTHESIA Hx Anesthesia: Yes Hx Anesthesia Reactions: No Meds Allergies/Adverse Reactions: Allergies Allergy/AdvReac Type Severity Reaction Status Date / Time vancomycin Allergy Severe RASH Verified 09/05/17 20:32 cefepime Allergy RASH Verified 09/06/17 01:00 Sulfa (Sulfonamide Allergy RASH Verified 09/06/17 01:00 Antibiotics) - Medications Medications: Current Medications Acetaminophen (Tylenol 325mg Tab) 325 mg PO Q6 PRN PRN Reason: Pain, moderate (4-7) Codeine Sulfate (Codeine) 30 mg PO Q6 PRN PRN Reason: Pain, severe (8-10) Docusate Sodium (Colace) 100 mg PO DAILY PRN PRN Reason: Constipation Last Admin: 09/08/17 08:54 Dose: 100 mg Enoxaparin Sodium (Lovenox) 40 mg SC DAILY [facility] PRN Reason: Protocol Last Admin: 09/08/17 08:54 Dose: 40 mg Escitalopram Oxalate (Lexapro) 20 mg PO DAILY [facility] Last Admin: 09/08/17 08:55 Dose: 20 mg Famotidine (Pepcid) 20 mg PO Q12 [facility] Last Admin: 09/08/17 21:05 Dose: 20 mg Ferrous Sulfate (Feosol) 325 mg PO BID [facility] Last Admin: 09/08/17 17:13 Dose: 325 mg Heparin Sodium (Porcine) (Heparin Lock Flush) 300 units IVF 0000 [facility] Stop: 09/12/17 15:00 Last Admin: 09/08/17 23:16 Dose: 300 units Daptomycin 500 mg/ Sodium (Chloride) 100 mls @ 100 mls/hr IV Q24H [facility] PRN Reason: Protocol Stop: 09/20/17 22:59 Last Admin: 09/08/17 21:56 Dose: 100 mls/hr Lactobacillus Acidophilus (Bacid Acidophilus) 1 cap PO Q12 [facility] Last Admin: 09/08/17 21:29 Dose: 1 cap Levofloxacin (Levaquin) 500 mg PO DAILY [facility] PRN Reason: Protocol Stop: 09/22/17 17:00 Loratadine (Claritin) 10 mg PO DAILY [facility] Last Admin: 09/08/17 08:53 Dose: 10 mg Multivitamins/Minerals (Therapeutic-M Tab) 1 tab PO DAILY [facility] Last Admin: 09/08/17 08:54 Dose: 1 tab Nystatin (Nystop Topical Powder) 1 applic TOP Q12 [facility] Last Admin: 09/08/17 21:05 Dose: 1 applic Thiamine HCl (Vitamin B1 Tab) 100 mg PO DAILY [facility] Last Admin: 09/08/17 08:54 Dose: 100 mg Valsartan (Diovan) 160 mg PO Q12 [facility] Last Admin: 09/08/17 21:06 Dose: 160 mg Results - Vital Signs Recent Vital Signs: Last Vital Signs Temp 97.9 F 09/09/17 07:35 Pulse 68 09/09/17 07:35 Resp 18 09/09/17 07:35 BP 124/66 09/09/17 07:35 Pulse Ox 97 09/09/17 07:35 - Labs Result Diagrams: 09/09/17 05:57 09/09/17 05:57 Labs: Laboratory Results - last 24 hr 09/09/17 09/09/17 05:57 05:57 WBC 8.4 RBC 4.11 Hgb 12.1 Hct 36.5 MCV 88.9 MCH 29.5 MCHC 33.1 RDW 16.3 H Plt Count 200 Sodium 141 Potassium 3.6 Chloride 103 Carbon Dioxide 27 Anion Gap 15 BUN 23 H Creatinine 0.9 Est GFR ( Amer) > 60 Est GFR (Non-Af Amer) 60 Random Glucose 99 Calcium 9.0
[2017-09-09] MEDS: Lactobacillus Acidophilus 500 MU Cap PO SCH ×2 (08:50→22:00)
[2017-09-09] MEDS: levoFLOXacin 500 MG TAB PO SCH (08:52)
[2017-09-09] MEDS: Enoxaparin 40 mg Syringe SC SCH (08:53)
[2017-09-09] MEDS: Multivitamin With Minerals Tab PO SCH (08:54)
--- NOTE | 2017-09-09 13:59 | CP.PCM.PN ---
Subjective - Date & Time of Evaluation Date of Evaluation: 09/09/17 Time of Evaluation: 11:00 - Subjective Subjective: Patient seen and examined. Denied any complaint. Objective - Vital Signs/Intake and Output Vital Signs (last 24 hours): Temp Pulse Resp BP Pulse Ox 97.9 F 68 18 124/66 97 09/09/17 07:35 09/09/17 07:35 09/09/17 07:35 09/09/17 07:35 09/09/17 07:35 - Medications Medications: Current Medications Acetaminophen (Tylenol 325mg Tab) 325 mg PO Q6 PRN PRN Reason: Pain, moderate (4-7) Codeine Sulfate (Codeine) 30 mg PO Q6 PRN PRN Reason: Pain, severe (8-10) Docusate Sodium (Colace) 100 mg PO DAILY PRN PRN Reason: Constipation Last Admin: 09/08/17 08:54 Dose: 100 mg Enoxaparin Sodium (Lovenox) 40 mg SC DAILY [facility] PRN Reason: Protocol Last Admin: 09/09/17 08:53 Dose: 40 mg Escitalopram Oxalate (Lexapro) 20 mg PO DAILY [facility] Last Admin: 09/09/17 08:53 Dose: 20 mg Famotidine (Pepcid) 20 mg PO Q12 [facility] Last Admin: 09/09/17 08:53 Dose: 20 mg Ferrous Sulfate (Feosol) 325 mg PO BID [facility] Last Admin: 09/09/17 08:51 Dose: 325 mg Heparin Sodium (Porcine) (Heparin Lock Flush) 300 units IVF 0000 [facility] Stop: 09/12/17 15:00 Last Admin: 09/08/17 23:16 Dose: 300 units Daptomycin 500 mg/ Sodium (Chloride) 100 mls @ 100 mls/hr IV Q24H [facility] PRN Reason: Protocol Stop: 09/20/17 22:59 Last Admin: 09/08/17 21:56 Dose: 100 mls/hr Lactobacillus Acidophilus (Bacid Acidophilus) 1 cap PO Q12 [facility] Last Admin: 09/09/17 08:50 Dose: 1 cap Levofloxacin (Levaquin) 500 mg PO DAILY [facility] PRN Reason: Protocol Stop: 09/22/17 17:00 Last Admin: 09/09/17 08:52 Dose: 500 mg Loratadine (Claritin) 10 mg PO DAILY [facility] Last Admin: 09/09/17 08:50 Dose: 10 mg Multivitamins/Minerals (Therapeutic-M Tab) 1 tab PO DAILY [facility] Last Admin: 09/09/17 08:54 Dose: 1 tab Nystatin (Nystop Topical Powder) 1 applic TOP Q12 [facility] Last Admin: 09/09/17 08:53 Dose: 1 applic Thiamine HCl (Vitamin B1 Tab) 100 mg PO DAILY [facility] Last Admin: 09/09/17 08:54 Dose: 100 mg Valsartan (Diovan) 160 mg PO Q12 [facility] Last Admin: 09/09/17 08:51 Dose: 160 mg - Labs Labs: 09/09/17 05:57 09/09/17 05:57 PT 12.4 Seconds (9.8-13.1) 09/06/17 06:05 INR 1.1 (0.9-1.2) 09/06/17 06:05 APTT 26.1 Seconds (25.6-37.1) 09/06/17 06:05 - Constitutional Appears: No Acute Distress - Head Exam Head Exam: ATRAUMATIC - Eye Exam Eye Exam: absent: Scleral icterus - ENT Exam ENT Exam: Mucous Membranes Moist - Neck Exam Neck Exam: absent: Meningismus - Respiratory Exam Respiratory Exam: absent: Rales, Rhonchi, Wheezes, Respiratory Distress - Cardiovascular Exam Cardiovascular Exam: REGULAR RHYTHM, +S1, +S2 - GI/Abdominal Exam GI & Abdominal Exam: Soft. absent: Tenderness - Rectal Exam Rectal Exam: Deferred - Neurological Exam Neurological Exam: Alert. absent: Oriented x3 - Psychiatric Exam Psychiatric exam: Normal Affect - Skin Skin Exam: Dry, Intact Assessment and Plan - Assessment and Plan (Free Text) Assessment: 81 yo female with history of Dementia, HTN and OA had undergone ORIF of the right hip fracture on 07/10/17. Surgical wound got infected and grew MRSA and E Coli. She was put initially on Vanco but developed allergic reaction to it. Vanco was DC and switched to Cubicin. Plan was to continue Cubicin for another 12 days 1. MRSA infected right Hip Wound ID consult with Dr Gray continue Cubicin and Levaquin 2. HTN BP stable continue Valsartan 160mg PO BID monitor BP 3. Dementia psychology consult 4. DVT prophylaxis Lovenox 40mg SC daily
[2017-09-09 15:51] VITALS: RESP 20
[2017-09-09 16:11] LABS: HEMOGLOBIN 12.1 g/dL (12.0-16.0); MEAN CORPUSCULAR HEMOGLOBIN 29.5 pg (27.0-31.0); MEAN CORPUSCULAR HGB CONC 33.5 g/dL (33.0-37.0); RBC 4.11 Mil/uL (3.80-5.20); RED CELL DISTRIBUTION WIDTH 15.9 % (11.5-14.5); WHITE BLOOD COUNT 7.4 K/uL (4.8-10.8)
[2017-09-09 16:37] LABS: BLOOD UREA NITROGEN 23 mg/dl (7-17); CALCIUM 8.7 mg/dL (8.4-10.2); GFR AFRICAN-AMERICAN > 60; GFR NON-AFRICAN AMERICAN 53
--- NOTE | 2017-09-09 17:06 | CP.PCM.PN ---
Subjective - Date & Time of Evaluation Date of Evaluation: 09/09/17 Time of Evaluation: 17:03 - Subjective Subjective: Patient seen in the room. Discussed earlier events with the daughter and nurse. She has not been too participatory in therapies and when standing had a very transient possible seizure, but not clear. Recovered quickly and had a drink of water and is at her baseline ++ dementia limited function blood work done and stable will follow Objective - Vital Signs/Intake and Output Vital Signs (last 24 hours): Temp Pulse Resp BP Pulse Ox 97.9 F 95 H 20 120/58 L 98 09/09/17 07:35 09/09/17 15:50 09/09/17 15:50 09/09/17 15:50 09/09/17 15:50 - Medications Medications: Current Medications Acetaminophen (Tylenol 325mg Tab) 325 mg PO Q6 PRN PRN Reason: Pain, moderate (4-7) Codeine Sulfate (Codeine) 30 mg PO Q6 PRN PRN Reason: Pain, severe (8-10) Docusate Sodium (Colace) 100 mg PO DAILY PRN PRN Reason: Constipation Last Admin: 09/08/17 08:54 Dose: 100 mg Enoxaparin Sodium (Lovenox) 40 mg SC DAILY [facility] PRN Reason: Protocol Last Admin: 09/09/17 08:53 Dose: 40 mg Escitalopram Oxalate (Lexapro) 20 mg PO DAILY [facility] Last Admin: 09/09/17 08:53 Dose: 20 mg Famotidine (Pepcid) 20 mg PO Q12 [facility] Last Admin: 09/09/17 08:53 Dose: 20 mg Ferrous Sulfate (Feosol) 325 mg PO BID [facility] Last Admin: 09/09/17 16:27 Dose: 325 mg Heparin Sodium (Porcine) (Heparin Lock Flush) 300 units IVF 0000 [facility] Stop: 09/12/17 15:00 Last Admin: 09/08/17 23:16 Dose: 300 units Daptomycin 500 mg/ Sodium (Chloride) 100 mls @ 100 mls/hr IV Q24H [facility] PRN Reason: Protocol Stop: 09/20/17 22:59 Last Admin: 09/08/17 21:56 Dose: 100 mls/hr Lactobacillus Acidophilus (Bacid Acidophilus) 1 cap PO Q12 [facility] Last Admin: 09/09/17 08:50 Dose: 1 cap Levofloxacin (Levaquin) 500 mg PO DAILY [facility] PRN Reason: Protocol Stop: 09/22/17 17:00 Last Admin: 09/09/17 08:52 Dose: 500 mg Loratadine (Claritin) 10 mg PO DAILY [facility] Last Admin: 09/09/17 08:50 Dose: 10 mg Multivitamins/Minerals (Therapeutic-M Tab) 1 tab PO DAILY [facility] Last Admin: 09/09/17 08:54 Dose: 1 tab Nystatin (Nystop Topical Powder) 1 applic TOP Q12 [facility] Last Admin: 09/09/17 08:53 Dose: 1 applic Thiamine HCl (Vitamin B1 Tab) 100 mg PO DAILY [facility] Last Admin: 09/09/17 08:54 Dose: 100 mg Valsartan (Diovan) 160 mg PO Q12 [facility] Last Admin: 09/09/17 08:51 Dose: 160 mg - Labs Labs: 09/09/17 15:57 09/09/17 15:57 PT 12.4 Seconds (9.8-13.1) 09/06/17 06:05 INR 1.1 (0.9-1.2) 09/06/17 06:05 APTT 26.1 Seconds (25.6-37.1) 09/06/17 06:05
[2017-09-09] MEDS: DAPTOmycin 500 MG in Sodium Chloride 0.9% 100 ML IV SCH (22:01)
[2017-09-10] MEDS: Lactobacillus Acidophilus 500 MU Cap PO SCH ×2 (08:23→21:46)
[2017-09-10] MEDS: Multivitamin With Minerals Tab PO SCH (08:24)
[2017-09-10] MEDS: levoFLOXacin 500 MG TAB PO SCH (08:24)
[2017-09-10] MEDS: Enoxaparin 40 mg Syringe SC SCH (08:32)
[2017-09-10] MEDS: DAPTOmycin 500 MG in Sodium Chloride 0.9% 100 ML IV SCH (21:47)
[2017-09-11] MEDS: levoFLOXacin 500 MG TAB PO SCH (08:29)
[2017-09-11] MEDS: Multivitamin With Minerals Tab PO SCH (08:30)
[2017-09-11] MEDS: Lactobacillus Acidophilus 500 MU Cap PO SCH ×2 (08:30→20:39)
[2017-09-11] MEDS: Enoxaparin 40 mg Syringe SC SCH (08:31)
[2017-09-11] MEDS: DAPTOmycin 500 MG in Sodium Chloride 0.9% 100 ML IV SCH (21:14)
[2017-09-12 06:52] LABS: HEMOGLOBIN 11.2 g/dL (12.0-16.0); MEAN CELL VOLUME 88.3 fl (81.0-99.0); MEAN CORPUSCULAR HEMOGLOBIN 30.3 pg (27.0-31.0); MEAN CORPUSCULAR HGB CONC 34.3 g/dL (33.0-37.0); RBC 3.7 Mil/uL (3.80-5.20); RED CELL DISTRIBUTION WIDTH 16.6 % (11.5-14.5); WHITE BLOOD COUNT 6.4 K/uL (4.8-10.8)
[2017-09-12 07:46] LABS: BLOOD UREA NITROGEN 16 mg/dl (7-17); CALCIUM 8.8 mg/dL (8.4-10.2); GFR AFRICAN-AMERICAN > 60; GFR NON-AFRICAN AMERICAN 60
[2017-09-12] MEDS: Enoxaparin 40 mg Syringe SC SCH (08:10)
[2017-09-12] MEDS: levoFLOXacin 500 MG TAB PO SCH (08:12)
[2017-09-12] MEDS: Multivitamin With Minerals Tab PO SCH (08:12)
[2017-09-12] MEDS: Lactobacillus Acidophilus 500 MU Cap PO SCH ×2 (08:15→20:52)
[2017-09-12 13:00] LABS: CK-MB 0.39 ng/mL (0.0-3.38)
--- NOTE | 2017-09-12 16:51 | CP.PCM.PN ---
Subjective - Date & Time of Evaluation Date of Evaluation: 09/12/17 Time of Evaluation: 11:00 - Subjective Subjective: Patient seen and examined at bedside today. The patient is more somnolent over the past 3-4 days. The daughter, Etta, is at bedside and also reports that she has not seen her this somnolent before. The patient appears comfortably demented. She is confused and unable to answer questions today. Of note, yesterday the patient possibly had a transient seizure lasting only several seconds as witnessed by the daughter, however it is unclear if this was a true seizure. The patient apparently had no postical confusion and went back to baseline at that time. Objective - Vital Signs/Intake and Output Vital Signs (last 24 hours): Temp Pulse Resp BP Pulse Ox 98.2 F 93 H 20 136/64 98 09/11/17 20:00 09/12/17 09:49 09/12/17 09:49 09/12/17 09:49 09/12/17 09:49 - Medications Medications: Current Medications Acetaminophen (Tylenol 325mg Tab) 325 mg PO Q6 PRN PRN Reason: Pain, moderate (4-7) Last Admin: 09/10/17 12:35 Dose: 325 mg Codeine Sulfate (Codeine) 30 mg PO Q6 PRN PRN Reason: Pain, severe (8-10) Docusate Sodium (Colace) 100 mg PO DAILY PRN PRN Reason: Constipation Last Admin: 09/12/17 08:11 Dose: 100 mg Enoxaparin Sodium (Lovenox) 40 mg SC DAILY [facility] PRN Reason: Protocol Last Admin: 09/12/17 08:10 Dose: 40 mg Escitalopram Oxalate (Lexapro) 20 mg PO DAILY [facility] Last Admin: 09/12/17 08:12 Dose: 20 mg Famotidine (Pepcid) 20 mg PO Q12 [facility] Last Admin: 09/12/17 08:12 Dose: 20 mg Ferrous Sulfate (Feosol) 325 mg PO BID [facility] Last Admin: 09/12/17 08:10 Dose: 325 mg Heparin Sodium (Porcine) (Heparin Lock Flush) 300 units IVF DAILY@0000 [facility] Last Admin: 09/11/17 23:14 Dose: 300 units Daptomycin 500 mg/ Sodium (Chloride) 100 mls @ 100 mls/hr IV Q24H [facility] PRN Reason: Protocol Stop: 09/20/17 22:59 Last Admin: 09/11/17 21:14 Dose: 100 mls/hr Lactobacillus Acidophilus (Bacid Acidophilus) 1 cap PO Q12 [facility] Last Admin: 09/12/17 08:15 Dose: 1 cap Levofloxacin (Levaquin) 500 mg PO DAILY [facility] PRN Reason: Protocol Stop: 09/22/17 17:00 Last Admin: 09/12/17 08:12 Dose: 500 mg Loratadine (Claritin) 10 mg PO DAILY [facility] Last Admin: 09/12/17 08:14 Dose: 10 mg Multivitamins/Minerals (Therapeutic-M Tab) 1 tab PO DAILY [facility] Last Admin: 09/12/17 08:12 Dose: 1 tab Nystatin (Nystop Topical Powder) 1 applic TOP Q12 [facility] Last Admin: 09/12/17 08:13 Dose: 1 applic Thiamine HCl (Vitamin B1 Tab) 100 mg PO DAILY [facility] Last Admin: 09/12/17 08:10 Dose: 100 mg Valsartan (Diovan) 160 mg PO Q12 [facility] Last Admin: 09/12/17 08:12 Dose: 160 mg - Labs Labs: 09/12/17 06:25 09/12/17 06:25 PT 12.4 Seconds (9.8-13.1) 09/06/17 06:05 INR 1.1 (0.9-1.2) 09/06/17 06:05 APTT 26.1 Seconds (25.6-37.1) 09/06/17 06:05 - Additional Findings Additional findings: Physical exam: Constitutional- cooperative, awake, somnolent but arousable. Confused. Head- NCAT, PERRL Eye- PERRL, EOMI ENT- normal exam, MMM. Neck- normal inspection, supple, no JVD Respiratory- CTAB, no wheezes rales rhonchi Cardiovascular- RRR, +S1, +S2 no MRG GI/Abdominal- normal bowel sounds, soft, no mass, no hsm Skin- warm, dry Extremities Exam- normal capillary refill, normal inspection Neurological Exam- lethargic, confused, oriented to person. Psych- normal mood, normal affect Assessment and Plan - Assessment and Plan (Free Text) Plan: 81 yo female with history of Dementia, HTN and OA had undergone ORIF of the right hip fracture on 07/10/17. Surgical got infected and grew MRSA and E Coli. She was put initially on Vanco but developed allergic reaction to it. Vanco was DC and switched to Cubicin. Plan was to continue Cubicin for 16 days 1. MRSA infected right Hip Wound ID consult with Dr Gray Continue Cubacin IV to 09/18/17 as per ID Continue Levaquin as per ID Plan to discharge in AM to alf to finish her antibiotics 2. Possible seizure EEG in AM Neurology on consult, Dr. Kraus D/C to alf tomorrow if cleared by neuro 3. HTN BP stable continue Valsartan 160mg PO BID monitor BP 4. Dementia- appears to be worsening psychology consult Neurology consult 5. DVT prophylaxis Lovenox 40mg SC daily
--- NOTE | 2017-09-12 18:28 | CP.PCM.PN ---
Subjective - Date & Time of Evaluation Date of Evaluation: 09/12/17 Time of Evaluation: 18:27 - Subjective Subjective: Patient seen in the room poor insight and memory not able to ambulate EEG pending and then d/c home very limited function Objective - Vital Signs/Intake and Output Vital Signs (last 24 hours): Temp Pulse Resp BP Pulse Ox 98.2 F 93 H 20 136/64 98 09/11/17 20:00 09/12/17 09:49 09/12/17 09:49 09/12/17 09:49 09/12/17 09:49 - Medications Medications: Current Medications Acetaminophen (Tylenol 325mg Tab) 325 mg PO Q6 PRN PRN Reason: Pain, moderate (4-7) Last Admin: 09/10/17 12:35 Dose: 325 mg Codeine Sulfate (Codeine) 30 mg PO Q6 PRN PRN Reason: Pain, severe (8-10) Docusate Sodium (Colace) 100 mg PO DAILY PRN PRN Reason: Constipation Last Admin: 09/12/17 08:11 Dose: 100 mg Enoxaparin Sodium (Lovenox) 40 mg SC DAILY [facility] PRN Reason: Protocol Last Admin: 09/12/17 08:10 Dose: 40 mg Escitalopram Oxalate (Lexapro) 20 mg PO DAILY [facility] Last Admin: 09/12/17 08:12 Dose: 20 mg Famotidine (Pepcid) 20 mg PO Q12 [facility] Last Admin: 09/12/17 08:12 Dose: 20 mg Ferrous Sulfate (Feosol) 325 mg PO BID [facility] Last Admin: 09/12/17 17:51 Dose: Not Given Heparin Sodium (Porcine) (Heparin Lock Flush) 300 units IVF DAILY@0000 [facility] Last Admin: 09/11/17 23:14 Dose: 300 units Daptomycin 500 mg/ Sodium (Chloride) 100 mls @ 100 mls/hr IV Q24H [facility] PRN Reason: Protocol Stop: 09/20/17 22:59 Last Admin: 09/11/17 21:14 Dose: 100 mls/hr Lactobacillus Acidophilus (Bacid Acidophilus) 1 cap PO Q12 [facility] Last Admin: 09/12/17 08:15 Dose: 1 cap Levofloxacin (Levaquin) 500 mg PO DAILY [facility] PRN Reason: Protocol Stop: 09/22/17 17:00 Last Admin: 09/12/17 08:12 Dose: 500 mg Loratadine (Claritin) 10 mg PO DAILY [facility] Last Admin: 09/12/17 08:14 Dose: 10 mg Multivitamins/Minerals (Therapeutic-M Tab) 1 tab PO DAILY [facility] Last Admin: 09/12/17 08:12 Dose: 1 tab Nystatin (Nystop Topical Powder) 1 applic TOP Q12 [facility] Last Admin: 09/12/17 08:13 Dose: 1 applic Thiamine HCl (Vitamin B1 Tab) 100 mg PO DAILY [facility] Last Admin: 09/12/17 08:10 Dose: 100 mg Valsartan (Diovan) 160 mg PO Q12 [facility] Last Admin: 09/12/17 08:12 Dose: 160 mg - Labs Labs: 09/12/17 06:25 09/12/17 06:25 PT 12.4 Seconds (9.8-13.1) 09/06/17 06:05 INR 1.1 (0.9-1.2) 09/06/17 06:05 APTT 26.1 Seconds (25.6-37.1) 09/06/17 06:05
[2017-09-12] MEDS: DAPTOmycin 500 MG in Sodium Chloride 0.9% 100 ML IV SCH (21:33)
[2017-09-13 03:17] VITALS: O2SAT 97
[2017-09-13 07:40] VITALS: BP 103/61; PULSE 85; TEMP 97.3
[2017-09-13] MEDS: Lactobacillus Acidophilus 500 MU Cap PO SCH (08:03)
[2017-09-13] MEDS: Enoxaparin 40 mg Syringe SC SCH (08:04)
[2017-09-13] MEDS: Multivitamin With Minerals Tab PO SCH (08:05)
[2017-09-13] MEDS: levoFLOXacin 500 MG TAB PO SCH (08:05)
--- NOTE | 2017-09-13 12:17 | CP.PCM.CON ---
History of Present Illness - History of Present Illness History of Present Illness: Neurology Consultation Note: Mrs. Marrero is an 81-year-old woman with a past medical history of dementia, HTN, osteoarthritis, right hip ORIF done on 07/10/17, who was admitted to an outside hospital on 07/29/17 for wound infection at the right surgical wound. PICC line placed and started on Vancomycin to which she later developed a skin rash. She had several witnessed episodes of acute confusion which were attributed to metabolic/toxic encephalopathy superimposed on dementia. She improved, and was transferred to [facility] for acute rehab. During her rehab, she has been refusing medications and having intermittent episodes of jerking movements followed by perspiration. Other times, she is somnolent and has not participated in therapy. Neurology was consulted for the abnormal movements and fluctuating mental status. Review of Systems - Review of Systems All systems: reviewed and no additional remarkable complaints except Past Patient History - Past Medical History & Family History Past Medical History?: Yes - Past Social History Smoking Status: Never Smoked Chewing Tobacco Use: No Cigar Use: No Alcohol: None Drugs: Denies - CARDIAC Hx Hypercholesterolemia: Yes Hx Hypertension: Yes - PULMONARY Hx Respiratory Disorders: No - NEUROLOGICAL Hx Dementia: Yes - HEENT Hx HEENT Problems: No - RENAL Hx Chronic Kidney Disease: No - ENDOCRINE/METABOLIC Hx Endocrine Disorders: No - HEMATOLOGICAL/ONCOLOGICAL Hx Blood Disorders: No - INTEGUMENTARY Hx Dermatological Problems: No - MUSCULOSKELETAL/RHEUMATOLOGICAL Hx Arthritis: Yes - GASTROINTESTINAL Hx Gastrointestinal Disorders: No - GENITOURINARY/GYNECOLOGICAL Hx Genitourinary Disorders: No - PSYCHIATRIC Hx Psychophysiologic Disorder: No - SURGICAL HISTORY Hx Surgeries: Yes Hx Orthopedic Surgery: Yes (Right hip ORIF) - ANESTHESIA Hx Anesthesia: Yes Hx Anesthesia Reactions: No Meds Allergies/Adverse Reactions: Allergies Allergy/AdvReac Type Severity Reaction Status Date / Time vancomycin Allergy Severe RASH Verified 09/05/17 20:32 cefepime Allergy RASH Verified 09/06/17 01:00 Sulfa (Sulfonamide Allergy RASH Verified 09/06/17 01:00 Antibiotics) - Medications Medications: Current Medications Acetaminophen (Tylenol 325mg Tab) 325 mg PO Q6 PRN PRN Reason: Pain, moderate (4-7) Last Admin: 09/10/17 12:35 Dose: 325 mg Codeine Sulfate (Codeine) 30 mg PO Q6 PRN PRN Reason: Pain, severe (8-10) Docusate Sodium (Colace) 100 mg PO DAILY PRN PRN Reason: Constipation Last Admin: 09/13/17 08:04 Dose: 100 mg Enoxaparin Sodium (Lovenox) 40 mg SC DAILY [facility] PRN Reason: Protocol Last Admin: 09/13/17 08:04 Dose: 40 mg Escitalopram Oxalate (Lexapro) 20 mg PO DAILY [facility] Last Admin: 09/13/17 08:05 Dose: 20 mg Famotidine (Pepcid) 20 mg PO Q12 [facility] Last Admin: 09/13/17 08:05 Dose: 20 mg Ferrous Sulfate (Feosol) 325 mg PO BID [facility] Last Admin: 09/13/17 08:04 Dose: 325 mg Heparin Sodium (Porcine) (Heparin Lock Flush) 300 units IVF DAILY@0000 [facility] Last Admin: 09/12/17 23:25 Dose: 300 units Daptomycin 500 mg/ Sodium (Chloride) 100 mls @ 100 mls/hr IV Q24H [facility] PRN Reason: Protocol Stop: 09/20/17 22:59 Last Admin: 09/12/17 21:33 Dose: 100 mls/hr Lactobacillus Acidophilus (Bacid Acidophilus) 1 cap PO Q12 [facility] Last Admin: 09/13/17 08:03 Dose: 1 cap Levofloxacin (Levaquin) 500 mg PO DAILY [facility] PRN Reason: Protocol Stop: 09/22/17 17:00 Last Admin: 09/13/17 08:05 Dose: 500 mg Loratadine (Claritin) 10 mg PO DAILY [facility] Last Admin: 09/13/17 08:04 Dose: 10 mg Multivitamins/Minerals (Therapeutic-M Tab) 1 tab PO DAILY [facility] Last Admin: 09/13/17 08:05 Dose: 1 tab Nystatin (Nystop Topical Powder) 1 applic TOP Q12 [facility] Last Admin: 09/13/17 08:05 Dose: 1 applic Thiamine HCl (Vitamin B1 Tab) 100 mg PO DAILY [facility] Last Admin: 09/13/17 08:04 Dose: 100 mg Valsartan (Diovan) 160 mg PO Q12 [facility] Last Admin: 09/13/17 08:05 Dose: 160 mg Physical Exam - Constitutional Appears: Non-toxic - Head Exam Head Exam: ATRAUMATIC, NORMAL INSPECTION, NORMOCEPHALIC - Eye Exam Eye Exam: EOMI, Normal appearance, PERRL - Respiratory Exam Respiratory Exam: Clear to Auscultation Bilateral, NORMAL BREATHING PATTERN - Cardiovascular Exam Cardiovascular Exam: REGULAR RHYTHM - GI/Abdominal Exam GI & Abdominal Exam: Normal Bowel Sounds, Soft. absent: Tenderness - Neurological Exam Neurological exam: Abnormal Gait, Altered, CN II-XII Intact Additional comments: Moves all extremities to command, but strength is difficult to assess. Appears to have generalized weakness, without focal deficits. Sensation is intact throughout. Reflexes are hypo throughout. Plantar responses were equivocal. - Psychiatric Exam Additional comments: Somnolent, little speech. Results - Vital Signs Recent Vital Signs: Last Vital Signs Temp 97.3 F L 09/13/17 09:00 Pulse 85 09/13/17 09:00 Resp 20 09/13/17 09:00 BP 103/61 09/13/17 09:00 Pulse Ox 97 09/13/17 07:39 - Labs Result Diagrams: 09/12/17 06:25 09/12/17 06:25 Labs: Laboratory Results - last 24 hr 09/12/17 09/12/17 11:50 11:50 Phosphorus 3.4 Magnesium 2.1 Iron 38 Total Creatine Kinase < 20 L CK-MB (Mass) 0.39 Vitamin B12 397 Assessment & Plan (1) Dementia Assessment and Plan: This is chronic, and the patient is refusing medications at this time. It is difficult to suggest therapy if the patient is refusing. For agitation, I recommend avoiding benzodiazepines due to the paradoxical response. Haldol 0.5 mg IM can be used, if needed, or Benadryl 25 mg IV. Otherwise, if she is taking oral medications, Seroquel 25 mg can be used. Continue current medications and follow up with outpatient neurology. Status: Acute (2) Abnormal involuntary movement Assessment and Plan: Will evaluate with an EEG to determine if there is an epileptogenic focus that can cause seizures. If the EEG is abnormal, we will start Keppra 500 mg BID and recommend follow-up with neurology. Thank you. Status: Acute
--- NOTE | 2017-09-13 13:51 | CP.PCM.DIS ---
Provider - Provider Date of Admission: 09/05/17 20:32 Attending physician: Vincent Cifuentes Consults: Infectious Disease: Dr. Gray Neurology: Dr. Kraus Physiatry: Dr. Coyle Psychology: Dr. Arevalo Social work Pharmacist Time Spent in preparation of Discharge (in minutes): 25 Hospital Course - Lab Results Lab Results: Most Recent Lab Values WBC 6.4 K/uL (4.8-10.8) 09/12/17 06:25 RBC 3.70 Mil/uL (3.80-5.20) L 09/12/17 06:25 Hgb 11.2 g/dL (12.0-16.0) L 09/12/17 06:25 Hct 32.7 % (34.0-47.0) L 09/12/17 06:25 MCV 88.3 fl (81.0-99.0) 09/12/17 06:25 MCH 30.3 pg (27.0-31.0) 09/12/17 06:25 MCHC 34.3 g/dL (33.0-37.0) 09/12/17 06:25 RDW 16.6 % (11.5-14.5) H 09/12/17 06:25 Plt Count 220 K/uL (130-400) 09/12/17 06:25 MPV 8.5 fl (7.2-11.7) 09/06/17 06:05 Neut % (Auto) 72.7 % (50.0-75.0) 09/06/17 06:05 Lymph % (Auto) 17.8 % (20.0-40.0) L 09/06/17 06:05 [place] % (Auto) 7.5 % (0.0-10.0) 09/06/17 06:05 Eos % (Auto) 1.7 % (0.0-4.0) 09/06/17 06:05 Baso % (Auto) 0.3 % (0.0-2.0) 09/06/17 06:05 Neut # (Auto) 6.0 K/uL (1.8-7.0) 09/06/17 06:05 Lymph # (Auto) 1.5 K/uL (1.0-4.3) 09/06/17 06:05 [place] # (Auto) 0.6 K/uL (0.0-0.8) 09/06/17 06:05 Eos # (Auto) 0.1 K/uL (0.0-0.7) 09/06/17 06:05 Baso # (Auto) 0.0 K/uL (0.0-0.2) 09/06/17 06:05 PT 12.4 Seconds (9.8-13.1) 09/06/17 06:05 INR 1.1 (0.9-1.2) 09/06/17 06:05 APTT 26.1 Seconds (25.6-37.1) 09/06/17 06:05 Sodium 141 mmol/l (132-148) 09/12/17 06:25 Potassium 3.9 MMOL/L (3.6-5.0) 09/12/17 06:25 Chloride 106 mmol/L (98-107) 09/12/17 06:25 Carbon Dioxide 24 mmol/L (22-30) 09/12/17 06:25 Anion Gap 15 (10-20) 09/12/17 06:25 BUN 16 mg/dl (7-17) 09/12/17 06:25 Creatinine 0.9 mg/dl (0.7-1.2) 09/12/17 06:25 Est GFR ( Amer) > 60 09/12/17 06:25 Est GFR (Non-Af Amer) 60 09/12/17 06:25 Random Glucose 94 mg/dL (65-105) 09/12/17 06:25 Calcium 8.8 mg/dL (8.4-10.2) 09/12/17 06:25 Phosphorus 3.4 mg/dl (2.5-4.5) 09/12/17 11:50 Magnesium 2.1 MG/DL (1.6-2.3) 09/12/17 11:50 Iron 38 ug/dL (37-170) 09/12/17 11:50 Total Bilirubin 0.5 mg/dl (0.2-1.3) 09/06/17 06:05 AST 19 U/L (14-36) 09/06/17 06:05 ALT 40 U/L (9-52) 09/06/17 06:05 Alkaline Phosphatase 54 U/L (38-126) 09/06/17 06:05 Total Creatine Kinase < 20 U/L (30-135) L 09/12/17 11:50 CK-MB (Mass) 0.39 ng/mL (0.0-3.38) 09/12/17 11:50 Total Protein 5.6 G/DL (6.3-8.2) L 09/06/17 06:05 Albumin 2.9 g/dL (3.5-5.0) L 09/06/17 06:05 Globulin 2.7 gm/dL (2.2-3.9) 09/06/17 06:05 Albumin/Globulin Ratio 1.1 (1.0-2.1) 09/06/17 06:05 Vitamin B12 397 pg/mL (239-931) 09/12/17 11:50 - Hospital Course Hospital Course: This is an 81 year old female with past medical history significant for dementia , hypertension, osteoarthritis, right hip ORIF done on 07/10/17, who was admitted to [facility]] on 07/29/17 for wound infection at the surgical site. The patient was placed on Vancomycin initially; however she developed a skin rash and this was changed to Cubicin. The patient was then sent to [facility] for acute inpatient rehabilitation. During her stay, the patient recieved focused pain management, PT, OT, and recreational therapy; however therapy was limited due to her dementia. During her rehab, on 09/11/2017, the patient was found to have intermittent episodes of jerking movements followed by perspiration. In addition, was found to have toxic / metabolic encephalopathy and worsening confusion on top of her dementia. She has lately been refusing medications. Dr. Lara, neurology, was consulted and recommended Seroquel 25 mg po HS if she will take po medications. EEG was performed due to the jerking movements and patient was cleared for discharge by neurology. The patient is to be discharged to long term today. #. MRSA infected wound Right Hip - Consult ID Dr Gray - Continue Cubacin to 09/18/17 or as per ID - Continue Levofloxacin for e. coli from initial cultures for 3 more days. #. HTN - Valsartan - Follow blood pressures #. Dementia - Psychiologist on board #. Anxiety - Consult Dr Arevalo Psychologist - Lexapro #. Deconditioning - Consult Dr Coyle Physiatry - PT/OT #. Code Status: Full Discharge Plan - Follow Up Plan Condition: GOOD Disposition: TRANSF TO SNF
== END 2017-09-13 15:12 | DRG 560 ==
PROVIDERS: ADMIT Internal Medicine; ATTEND Internal Medicine
PROC: F07Z9FZ Gait Training/Functional Ambulation Treatment using Assistive, Adaptive, Supportive or Protective Equipment (ICD-10-PCS; principal; 2017-09-05)
PROC: F08Z4FZ Home Management Treatment using Assistive, Adaptive, Supportive or Protective Equipment (ICD-10-PCS; 2017-09-05)
PROC: 3E04329 Introduction of Other Anti-infective into Central Vein, Percutaneous Approach (ICD-10-PCS; 2017-09-05)
DX: Z47.89 Encounter for other orthopedic aftercare (principal); M86.8X8 Other osteomyelitis, other site; T81.4XXD Infection following a procedure, subsequent encounter; M16.11 Unilateral primary osteoarthritis, right hip; Z79.899 Other long term (current) drug therapy; M19.90 Unspecified osteoarthritis, unspecified site; E78.00 Pure hypercholesterolemia, unspecified; E78.5 Hyperlipidemia, unspecified; F03.90 Unspecified dementia, unspecified severity, without behavioral disturbance, psychotic disturbance, mood disturbance, and anxiety; F41.9 Anxiety disorder, unspecified; I10 Essential (primary) hypertension; B95.62 Methicillin resistant Staphylococcus aureus infection as the cause of diseases classified elsewhere